=== PATIENT | male | born 1965 | race Caucasian/White ===

== ENCOUNTER 2025-04-01 17:00 | Inpatient (IN) | payer MEDICARE, MEDICAID ==
[~2025-04-01] VITALS: Ht 165.1 cm; Wt 62.0 kg
[2025-04-01] VITALS (7 sets, daily range): BP systolic 107–120; BP diastolic 69–84; PULSE 70–80; RESP 15–20; O2SAT 96–100
[~2025-04-01 17:00] MED LIST: CLON0.2T
--- NOTE | 2025-04-01 17:13 | ED.PDOC ---
HPI Comments This is a 60 year old male SONIA presenting to the ED with chief complaint of chest pain. EMS reports patient is coming from dialysis center where he did not get dialysis due to his symptoms. EMS relays that the patient is currently experiencing left sided 6/10 chest pain with associated SOB and fatigue. EMS states patient was hypotensive in the 70s systolically, but after 500mL of IV NS, it improved to 100 systolically. EMS notes patient had an O2 saturation in the 80s on RA, but when placed on 15L he was in the mid 90s. Patient denies any cough, fever, chills, headache, dizziness, N/V, or syncope. EMS reports patient had a cardiac arrest last week and was resuscitated at [place]. Time Seen by MD: 17:09 Reviewed Notes: Nurses Notes, Medications, Allergies Allergies: Coded Allergies: Penicillins (Verified Allergy, Unknown, 04/01/25) Home Meds Active Scripts Azithromycin (Azithromycin) 500 Mg Tab, 1 TAB PO DAILY, #3 TAB Prov:ISELA JAIMES MD 04/04/25 Cefdinir (Cefdinir) 300 Mg Cap, 1 CAP PO BID for 5 Days, #10 CAP Prov:ISELA JAIMES MD 04/04/25 Reported Medications Clonidine Hydrochloride (Clonidine Hcl) 0.2 Mg Tab 09/18/10 Information Source: Patient, Emergency Med Personnel Mode of Arrival: EMS Severity: Moderate Timing: Hours Duration: Since onset Prehospital treatment: None Location: Chest (L) Quality: Sharp Onset: At Rest PE Risk Factors: None History of: Similar pain in past Associated Signs and Symptoms: SOB Past Medical History PAST MEDICAL HISTORY: COPD, ESRD Past Medical History (Other): Cardiac Arrest x1 week ago Surgical History: Denies all surgeries Family History Family History: Reviewed,noncontributory to illness Social History Smoker: Non-Smoker Alcohol: Denies ETOH Use Drugs: Denies Drug Use Lives In: Home Constitutional: reports: fatigue; denies: chills, diaphoresis, fever, malaise, sweats, weakness, others EENTM: denies: blurred vision, double vision, ear bleeding, ear discharge, ear drainage, ear pain, ear ringing, eye pain, eye redness, hearing loss, mouth pain, mouth swelling, nasal discharge, nose bleeding, nose congestion, nose p ain, photophobia, tearing, throat pain, throat swelling, voice changes, others Respiratory: reports: shortness of breath; denies: cough, hemoptysis, orthopnea, SOB at rest, SOB with excertion, stridor, wheezing, others Cardiovascular: reports: chest pain; denies: dizzy spells, diaphoresis, Dyspnea on exertion, edema, irregular heart beat, left arm pain, lightheadedness, palpitations, PND, syncope, others Gastrointestinal: denies: abdomen distended, abdominal pain, blood streaked bowels, constipated, diarrhea, dysphagia, difficulty swallowing, hematemesis, melena, nausea, poor appetite, poor fluid intake, rectal bleeding, rectal pain, vomiting, others Genitourinary: denies: burning, dysuria, flank pain, frequency, hematuria, incontinence, penile discharge, penile sore, pain, testicle pain, testicle swelling, urgency, others Neurological: denies: dizziness, fainting, headache, left sided numbness, left sided weakness, numbness, paresthesia, pre-existing deficit, right sided numbness, right sided weakness, seizure, speech problems, tingling, tremors, weakness, others Musculoskeletal: denies: back pain, gout, joint pain, joint swelling, muscle pain, muscle stiffness, neck pain, others Integumetry: denies: bruises, change in color, change in hair/nails, dryness, laceration, lesions, lumps, rash, wounds, others Allergic/Immunocompromised: denies: Difficulty Healing, Frequent Infections, Hives, Itching, others Hematologic/Lymphatic: denies: anemia, blood clots, easy bleeding, easy bruising, swollen glands, others Endocrine: denies: excessive hunger, excessive sweating, excessive thirst, excessive urination, flushing, intolerance to cold, intolerance to heat, unexplained weight gain, unexplained weight loss, others Psychiatric: denies: anxiety, bipolar disorder, depression, hopeless, panic disorder, schizophrenia, sleepless, suicidal, others All Other Systems: Reviewed and Negative Physical Exam General Appearance: No Apparent Distress, Normal HEENT: Normal ENT Inspection, Pharynx Normal, TMs Normal Neck: Full Range of Motion, Non-Tender, Normal, Normal Inspection Respiratory: Chest Non-Tender, Lungs Clear, No Accessory Muscle Use, No Respiratory Distress, Normal Breath Sounds Cardiovascular: No Edema, No JVD, No Murmur, No Gallop, Normal Peripheral Pulses, Regular Rate/Rhythm Breast Exam: Deferred Gastrointestinal: No Organomegaly, Non Tender, No Pulsatile Mass, Normal Bowel Sounds, Soft Genitalia: Deferred Pelvic: Deferred Rectal: Deferred Extremities: No calf tenderness, Normal capillary refill, Normal inspection, Normal range of motion, Non-tender, No pedal edema Musculoskeletal : Apperance: Normal Neurologic: Alert, low raw sugar cutter II-XII nml as Tested, No Motor Deficits, Normal Affect, Normal Mood, No Sensory Deficits Cerebellar Function: Normal Reflexes: Normal Skin: Dry, Normal Color, Warm Lymphatic: No Adenopathy Was a procedure done? Was a procedure done?: No CP Differential Dx Differential Diagnosis: Hypoxia, MAT, PAC's, PVC's, Renal Failure Differential Diagnosis: CHF, HTN Essential, HTN Accelerated Differential Diagnosis: Chest Wall Pain, Myocardial Infarction, Pericarditis X-Ray, Labs, Meds, VS Vital Signs Date Time Temp Pulse Resp B/P (MAP) Pulse Ox O2 Delivery O2 Flow Rate FiO2 04/01/25 20:21 75 15 100 Bi-Pap+ 0 80 80 04/01/25 20:04 75 04/01/25 20:00 75 04/01/25 19:30 97.9 75 15 117/77 (90) 100 97.9 04/01/25 19:15 73 115/70 100 Facial BiPAP Mask 100 04/01/25 19:05 121/76 04/01/25 19:00 26 100 Bi-Pap+ 100 100 04/01/25 18:20 70 20 107/69 100 100 04/01/25 18:00 74 04/01/25 17:35 70 107/69 100 Facial BiPAP Mask 100 04/01/25 17:23 72 19 96 Non-Rebreather 15 N/A 04/01/25 17:23 97.5 72 19 107/69 (82) 96 97.5 04/01/25 17:03 96.1 74 24 94/50 96 96.1 04/01/25 17:01 72 Lab Test 04/01/25 18:31 04/01/25 17:41 Range/Units Troponin I High Sensitivity 15 15 </=54 ng/L White Blood Count 9.7 4.4-10.8 10^3/uL Red Blood Count 3.29 L 4.5-5.90 10^6/uL Hemoglobin 9.5 L 13.5-17.5 g/dL Hematocrit 28.9 L 41.0-53.0 % Mean Corpuscular Volume 87.9 80.0-100.0 fL Mean Corpuscular Hemoglobin 28.9 28.0-32.0 pg Mean Corpuscular Hemoglobin Concent 32.9 32.0-36.0 g/dL Red Cell Distribution Width 17.3 H 11.8-14.3 % Platelet Count 613 H 140-450 10^3/uL Mean Platelet Volume 6.9 6.9-10.8 fL Neutrophils (%) (Auto) 82.2 H 37.0-80.0 % Lymphocytes (%) (Auto) 4.3 L 10.0-50.0 % Monocytes (%) (Auto) 10.9 0.0-12.0 % Eosinophils (%) (Auto) 1.3 0.0-7.0 % Basophils (%) (Auto) 1.3 0.0-2.0 % Neutrophils # (Auto) 8.0 1.6-8.6 10 ^3/uL Lymphocytes # (Auto) 0.4 0.4-5.4 10 ^3/uL Monocytes # (Auto) 1.1 0-1.3 10 ^3/uL Eosinophils # (Auto) 0.1 0-0.8 10 ^3/uL Basophils # (Auto) 0.1 0-0.2 10 ^3/uL Nucleated Red Blood Cells 0.1 % Sodium Level 141 136-145 mmol/L Potassium Level 5.3 H 3.5-5.1 mmol/L Chloride Level 104 98-107 mmol/L Carbon Dioxide Level 22 20-31 mmol/L Anion Gap 15 5-15 Blood Urea Nitrogen 48 H 9-23 mg/dL Creatinine 6.40 H 0.700-1.30 mg/dL Glomerular Filtration Rate Calc 9 >90 mL/min BUN/Creatinine Ratio 7.5 L 10.0-20.0 Serum Glucose 137 H 74-106 mg/dL Calcium Level 8.1 L 8.7-10.4 mg/dL Phosphorus Level 5.2 H 2.4-5.1 mg/dL Magnesium Level 2.1 1.6-2.6 mg/dL B-Type Natriuretic Peptide 1220.90 0-100 pg/mL Time of 1ST Reevaluation: 18:08 Reevaluation 1ST: Unchanged Patient Education/Counseling: Diagnosis, Treatment Family Education/Counseling: No Family Present SEPSIS Sepsis Screen Physician Orders Chest Portable (04/01/25 17:10) Electrocardigram (04/01/25 17:10) Electrocardigram (04/01/25 18:10) Electrocardigram (04/01/25 20:10) Vital Signs Date Time Temp Pulse Resp B/P (MAP) Pulse Ox O2 Delivery O2 Flow Rate FiO2 04/01/25 20:21 75 15 100 Bi-Pap+ 0 80 80 04/01/25 20:04 75 04/01/25 20:00 75 04/01/25 19:30 97.9 75 15 117/77 (90) 100 97.9 04/01/25 19:15 73 115/70 100 Facial BiPAP Mask 100 04/01/25 19:05 121/76 04/01/25 19:00 26 100 Bi-Pap+ 100 100 04/01/25 18:20 70 20 107/69 100 100 04/01/25 18:00 74 04/01/25 17:35 70 107/69 100 Facial BiPAP Mask 100 04/01/25 17:23 72 19 96 Non-Rebreather 15 N/A 04/01/25 17:23 97.5 72 19 107/69 (82) 96 97.5 04/01/25 17:03 96.1 74 24 94/50 96 96.1 04/01/25 17:01 72 Laboratory Tests Test 04/01/25 17:41 White Blood Count 9.7 10^3/uL (4.4-10.8) Departure 1 Departure Time of Disposition: 04:48 (Patient presented with chest pain that was concerning for possible STEMI, ACS, PE, Pneumonia, Muscle Strain, COPD, Dissection. Data: 1. I ordered and reviewed the result of at least 3 labs inc luding a CBC, BMP, and Troponin. 2. I independently interpreted the following tests: EKG which shows sinus arrhythmia and Chest X-ray which shows benign chest.Risk:This patient has a high risk of morbidity due to further diagnostic testing or treatment and may suffer from an acute cardiac or respiratory disorder. Workup reveals concern for ACS and patient should be admitted for fur ther workup and possible expert consultation. ) Impression: Primary Impression: Acute chest pain Additional Impression: Acute and chronic respiratory failure Disposition: ADMITTED INPATIENT Admit to: Tele Condition: Guarded e-Prescriptions Azithromycin (Azithromycin) 500 Mg Tab 1 TAB PO DAILY, #3 TAB Prov: ISELA JAIMES MD 04/04/25 Cefdinir (Cefdinir) 300 Mg Cap 1 CAP PO BID for 5 Days, #10 CAP Prov: ISELA JAIMES MD 04/04/25 Critical Care Note Critical Care Time?: Yes Critical care comment: Acute chest pain Authorized and Performed by: Marie Mcrae MD Total critical care time: Approximately 38 minutes Due to a high probability of clinically significant, life threatening deterioration, the patient required my highest level of preparedness to intervene emergently and I personally spent this critical care time directly and personally managing the patient. This critical care time included obtaining a history; examining the patient; pulse oximetry; ordering and review of studies; arranging urgent treatment with development of a management plan; evaluation of patient's response to treatment; frequent reassessment; and, discussions with other providers. This critical care time was performed to assess and manage the high probability of imminent, life-threatening deterioration that could result in multi-organ failure. It was exclusive of separately billable procedures and treating other patients and teaching time. Please see my other sections and the rest of the note for further information on patient assessment and treatment. Stability Stability form required: No Heart Score Heart Score: Heart Score Response (Comments) Value History Highly Suspicious 2 EKG Repolarization Disturb 1 Age 45-64 1 Risk Factors >3 or Hx ASHD 2 Troponin 1-2 x's Normal limit 1 Total 7 I personally scribed for MARIE MCRAE MD ([email or web address]) on 04/01/25 at 17:13. Electronically submitted by Leon Kemp ([email or web address]). MARIE MCRAE MD Apr 01, 2025 17:13
--- NOTE | 2025-04-01 17:59 | ECG ---
[facility] Test Date: 2025-04-01 Test Time: 17:58:20 Pat Name: ROBSON ESQUIVEL Department: [facility] ED Patient ID: [id number] Room: 0217T Gender: M Pizzamaker: AM : 1965 Requested By: MARIE POWELL Order Number: [id number] Reading MD: Valdo Heard Measurements Intervals [place] Rate: 74 P: 49 PA: 147 QRS: 42 QRSD: 91 T: 11 QT: 446 QTc: 495 Interpretive Statements Sinus rhythm Anteroseptal infarct, age indeterminate Baseline wander in lead(s) I,II,aVR,aVF Electronically Signed On 04-04-2025 20:34:42 PDT by Valdo Heard Please click the below link to view image of tracing.
[2025-04-01 18:05] LABS: Hematocrit 28.9 % (41.0-53.0); Hemoglobin 9.5 g/dL (13.5-17.5); Mean Corpuscular Hemoglobin 28.9 pg (28.0-32.0); Mean Corpuscular Volume 87.9 fL (80.0-100.0); Nucleated Red Blood Cells % 0.1 %
--- NOTE | 2025-04-01 18:06 | DVH ---
CHEST RADIOGRAPH Indication: sob Technique: XY CHEST PORTABLE COMPARISON: None FINDINGS: Left IJ Perma catheter tip projects over the cavoatrial junction The cardiac silhouette is enlarged. The lungs demonstrate bilateral patchy airspace opacities. The pu lmonary vasculature is prominent. Small to moderate left pleural effusion. There is no pneumothorax. IMPRESSION: Cardiomegaly with pulmonary vascular congestion and bilateral patchy airspace opacities. Small to moderate left pleural effusion.
[2025-04-01 18:10] LABS: Chloride 104 mmol/L (98-107); Sodium 141 mmol/L (136-145)
[2025-04-01 18:11] LABS: Anion Gap 15 (5-15); Carbon Dioxide 22 mmol/L (20-31)
[2025-04-01 18:16] LABS: BUN/Creatinine Ratio 7.5 (10.0-20.0)
[2025-04-01 18:17] LABS: Magnesium 2.1 mg/dL (1.6-2.6)
[2025-04-01 18:27] LABS: Blood Urea Nitrogen 48 mg/dL (9-23); Calcium 8.1 mg/dL (8.7-10.4); Glucose 137 mg/dL (74-106); Potassium 5.3 mmol/L (3.5-5.1)
[2025-04-01] MEDS: IPRATROPIUM BROM 0.5 MG/2.5ML INH SOL NEB ONE (19:00)
[2025-04-01] MEDS: ALBUTEROL SULF 2.5 MG/0.5ML(0.5%) NEB SOLN NEB ONE (19:00)
[2025-04-01] MEDS: FUROSEMIDE 40 MG/4 ML VIAL IV ONE (19:05)
--- NOTE | 2025-04-01 20:08 | ECG ---
[facility] Test Date: 2025-04-01 Test Time: 20:04:03 Pat Name: ROBSON ESQUIVEL Department: [facility] ED Patient ID: [id number] Room: 0217T Gender: M Roof Bolter: YOLANDA : 1965 Requested By: MARIE POWELL Order Number: [id number] Reading MD: Valdo Heard Measurements Intervals [place] Rate: 75 P: 266 DE: 107 QRS: -10 QRSD: 84 T: 29 QT: 422 QTc: 472 Interpretive Statements Sinus or ectopic atrial rhythm Short DE interval Anterior infarct, old Baseline wander in lead(s) III Electronically Signed On 04-04-2025 20:35:07 PDT by Valdo Heard Please click the below link to view image of tracing.
[2025-04-01] MEDS ORDERED: MORPHINE SULFATE 4 MG/ML SYR/VIAL IV PRN (21:00)
[2025-04-01] MEDS ORDERED: NITROGLYCERIN 0.4 MG SL TAB SL PRN (21:00)
[2025-04-01] MEDS ORDERED: ONDANSETRON HCL 4 MG/2 ML VIAL IV PRN (21:00)
--- NOTE | 2025-04-01 21:00 | DVHHPRES ---
History of Present Illness Resident Creating Document: MATTY HUERTA RESIDENT History of Present Illness Osmin Rodriguez is a 60-year-old male patient who presents to the ED with chief complaint of dull achy retrosternal chest pain intensity 9/10, worsened with movements and reproduces with palpation, triggered after receiving CPR approximately one month ago, but worsened before receiving hemodialysis session on the day of his admission associated with dyspnea in functional class IV and hypotension (80/40 mmHg), prompting his visit to the ED. patient reports recent admission in [facility] due to cardiac arrest with posterior ROSC secondary to GI bleed (PUD), requiring emergent endoscopy that catheterized bleeding ulcer, and required 9 units of PRBCs. Denies any other associated symptoms, including syncope, palpitation, fever and chills. Past medical history: Hypertension, gastritis, recent hospitalization with cardiac arrest requiring CPR due to GI bleed (PUD) status post endoscopies treatment and 9 PRBCs, end-stage renal disease on dialysis since a proximally one year and a half (follows [facility] with Dr. Ponce), questionable obstructive sleep apnea, CHF on home oxygen (2 L/min during nighttime). Surgical history: EGD with active bleeding treatment, ACL replacement, splenectomy Family history: Noncontributory Social history: Lives in [place] with (next of kin). 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 Denies current tobacco, alcohol and other drug abuse Allergies: Penicillin (rash) Home medication: Hydralazine, calcium, nifedipine Patient seen examined at bedside. Currently on BiPAP machine, saturating above 88% (98%). Admit the patient to [facility] to continue management. Past Medical History Per HPI Past Surgical History Per HPI Family History Per HPI Past Social History Per HPI Review of Systems Review of Systems For HPI Allergies: Coded Allergies: Penicillins (Verified Allergy, Unknown, 04/01/25) Medications Current Medications Medications Dose Ordered Sig/Nikos Route Start Time Stop Time Status Last Admin Dose Admin Acetaminophen 325 mg Q4HP PRN PO 04/01/25 21:00 Ondansetron HCl 4 mg Q4HP PRN IV 04/01/25 21:00 UNV Morphine Sulfate 2 mg Q4HPRN PRN IV 04/01/25 21:00 UNV Morphine Sulfate 2 mg Q30M PRN IV 04/01/25 21:00 UNV Nitroglycerin 0.4 mg Q5MINP PRN SL 04/01/25 21:00 Exam Vital Signs Vital Signs Date Time Temp Pulse Resp B/P (MAP) Pulse Ox O2 Delivery O2 Flow Rate FiO2 04/01/25 20:21 75 15 100 Bi-Pap+ 0 80 80 04/01/25 20:21 97.9 117/77 (90) 97.9 Exam Patient lying in bed, in no acute distress General: Lucid, afebrile, mucosae are moist Cardiovascular: Normal S1 and S2. No murmurs, gallops or rubs Respiratory: Regular ventilation mechanics, on BIPAP. Bilateral crackles up to mid lungs bazan. Abdomen: Soft, nontender, no organomegaly, normal bowel sounds MSK/skin: Mobilizes 4 limbs. Skin is dry and warm. Presents tunneled catheter in left subclavian region, no signs of erythema. Neurological: Oriented in 3 spheres. No motor no sensitive deficits. Pupils are isocoric and reactive Labs/Xrays Labs Test 04/01/25 18:31 04/01/25 17:41 Range/Units Troponin I High Sensitivity 15 </=54 ng/L White Blood Count 9.7 4.4-10.8 10^3/uL Red Blood Count 3.29 L 4.5-5.90 10^6/uL Hemoglobin 9.5 L 13.5-17.5 g/dL Hematocrit 28.9 L 41.0-53.0 % Mean Corpuscular Volume 87.9 80.0-100.0 fL Mean Corpuscular Hemoglobin 28.9 28.0-32.0 pg Mean Corpuscular Hemoglobin Concent 32.9 32.0-36.0 g/dL Red Cell Distribution Width 17.3 H 11.8-14.3 % Platelet Count 613 H 140-450 10^3/uL Mean Platelet Volume 6.9 6.9-10.8 fL Neutrophils (%) (Auto) 82.2 H 37.0-80.0 % Lymphocytes (%) (Auto) 4.3 L 10.0-50.0 % Monocytes (%) (Auto) 10.9 0.0-12.0 % Eosinophils (%) (Auto) 1.3 0.0-7.0 % Basophils (%) (Auto) 1.3 0.0-2.0 % Neutrophils # (Auto) 8.0 1.6-8.6 10 ^3/uL Lymphocytes # (Auto) 0.4 0.4-5.4 10 ^3/uL Monocytes # (Auto) 1.1 0-1.3 10 ^3/uL Eosinophils # (Auto) 0.1 0-0.8 10 ^3/uL Basophils # (Auto) 0.1 0-0.2 10 ^3/uL Nucleated Red Blood Cells 0.1 % Sodium Level 141 136-145 mmol/L Potassium Level 5.3 H 3.5-5.1 mmol/L Chloride Level 104 98-107 mmol/L Carbon Dioxide Level 22 20-31 mmol/L Anion Gap 15 5-15 Blood Urea Nitrogen 48 H 9-23 mg/dL Creatinine 6.40 H 0.700-1.30 mg/dL Glomerular Filtration Rate Calc 9 >90 mL/min BUN/Creatinine Ratio 7.5 L 10.0-20.0 Serum Glucose 137 H 74-106 mg/dL Calcium Level 8.1 L 8.7-10.4 mg/dL Phosphorus Level 5.2 H 2.4-5.1 mg/dL Magnesium Level 2.1 1.6-2.6 mg/dL B-Type Natriuretic Peptide 1220.90 0-100 pg/mL SEPSIS Sepsis Screen Date sepsis recognized/suspect: Apr 01, 2025 Time Sepsis recognized/suspect: 1929 Recent Procedure: No On Antibiotic Therapy: No Respiratory Rate >20: No Heart Rate >90: No Temp<36 C (96.8 F) or >38.3 C: No SBP <90 or MAP <65 mmHG: No New Acute Mental Status Change: No Is the patient on CPAP, BIPAP,: Yes (on 80% for SOB) Physician Orders Chest Portable (04/01/25 17:10) Troponin-I Hs (04/01/25 20:10) Electrocardigram (04/01/25 20:10) BIPAP (04/01/25 17:26) Ceftriaxone 1gm/50ml (Rocephin) (04/01/25 19:00) Admit (04/01/25 20:53) Code Status (04/01/25 20:53) Acetaminophen Tablet (Tylenol Tablet) (04/01/25 21:00) Ondansetron Hcl (Zofran) (04/01/25 21:00) Complete Blood Count (04/02/25 04:00) Comprehensive Metabolic Panel (04/02/25 04:00) Npo (Nothing By Mouth) Diet (04/02/25 Breakfast) Echo 2d Mode Cardiac Dop (04/01/25 20:53) Morphine Sulfate Injection (04/01/25 21:00) Oxygen By Nasal Cannula (04/01/25 20:53) Stat Ekg For Chest Pain (04/01/25 20:53) Notify Of Changes From Base (04/01/25 20:53) Account Executive Software Sales For 24 Hours (04/01/25 20:53) Emergency Dysrhythmia Protocol (04/01/25:53) Rhythm Strips Once Every Shift (04/01/25 20:53) Morphine Sulfate Injection (04/01/25 21:00) Nitroglycerin Sublingual (Ntrostat Subli (04/01/25 21:00) Vitamin D, 25-Hydroxy (04/01/25 20:53) Vitamin B12 (04/01/25 20:53) Urinalysis (04/01/25 20:53) PTPTT (04/01/25 20:53) Phosphorus (04/01/25 20:53) Magnesium (04/01/25 20:53) Lipid Panel (04/01/25 20:53) Lactic Acid W/ Reflex Order (04/01/25 20:53) Lipase (04/01/25 20:53) Hemoglobin A1c (04/01/25 20:53) Drug Screen (04/01/25 20:53) Ammonia (04/01/25 20:53) Hepatic Panel (04/01/25 20:53) Electrocardigram (04/01/25 20:53) Vital Signs Date Time Temp Pulse Resp B/P (MAP) Pulse Ox O2 Delivery O2 Flow Rate FiO2 04/01/25 20:21 75 15 100 Bi-Pap+ 0 80 80 04/01/25 20:21 97.9 75 15 117/77 (90) 100 97.9 04/01/25 20:04 75 04/01/25 19:15 73 115/70 100 Facial BiPAP Mask 100 04/01/25 19:05 121/76 04/01/25 19:00 26 100 Bi-Pap+ 100 100 04/01/25 18:20 70 20 107/69 100 100 04/01/25 18:00 74 04/01/25 17:35 70 107/69 100 Facial BiPAP Mask 100 04/01/25 17:23 72 19 96 Non-Rebreather 15 N/A 04/01/25 17:23 97.5 72 19 107/69 (82) 96 97.5 04/01/25 17:03 96.1 74 24 94/50 96 96.1 04/01/25 17:01 72 Laboratory Tests Test 04/01/25 17:41 White Blood Count 9.7 10^3/uL (4.4-10.8) Medications Medications Dose Ordered Sig/Nikos Route Start Time Stop Time Status Last Admin Dose Admin Albuterol 2.5 mg ONCE ONCE NEB 04/01/25 19:00 04/01/25 19:01 DC 04/01/25 19:00 2.5 MG Furosemide 40 mg ONCE ONCE IV 04/01/25 19:00 04/01/25 19:01 DC 04/01/25 19:05 40 MG Ipratropium [place] 1 mg ONCE ONCE NEB 04/01/25 19:00 04/01/25 19:01 DC 04/01/25 19:00 1 MG Assessment/Plan Assessment/Plan Acute respiratory failure Probable pneumonia Gram-positive/Gram-negative Acute on chronic congestive heart failure (pending LVEF) Cardiorenal syndrome type three Patient is currently on furosemide, requiring hemodialysis session. Consulted nephrology BNP elevated Normocytic anemia History of severe GI bleed complicated with cardiac arrest - status post EGD with catheterization of PUD Thrombocytopenia Evaluate requirement of erythropoietin Patient is currently on heparin, we will monitor hemoglobin and hematocrit End-stage renal disease currently on hemodialysis session Hyperphosphatemia Hyperkalemia Consulted nephrology Optimize electrolytes History of Polysubstance abuse Counseled strongly on continuing cessation of substance abuse for over 16 minutes Patient last consumed methamphetamine a year and a half ago. Ordered UDS, patient is almost anuric. Goals of care discussed with patient for over 18 minutes: Full code status Discussed plan with Dr. Trujillo, patient and nurses: Patient admitted to [facility] with requirement of BiPAP. Currently under empiric IV antibiotic, IV diuretics, oxygen therapy and bronchodilators. Consulted Nephrology for eventual hemodialysis session. Patient has poor prognosis Plan discussed with: Patient, Other (Nurses) My Orders Orders - MATTY HUERTA RESIDENT Procedure Category Date Status Time Admit ADMIT 04/01/25 Transmitted 20:53 Code Status CODE 04/01/25 Transmitted 20:53 Acetaminophen Tablet PHA 04/01/25 In Process (Tylenol Tablet) 21:00 Ondansetron Hcl PHA 04/01/25 Logged (Zofran) 21:00 Complete Blood Count LAB 04/02/25 Verified 04:00 Comprehensive LAB 04/02/25 Verified Metabolic Panel 04:00 Npo (Nothing By DIET 04/02/25 Transmitted Mouth) Diet Breakfast Echo 2d Mode Cardiac US 04/01/25 Logged DOP 20:53 Morphine Sulfate PHA 04/01/25 Logged Injection 21:00 Oxygen By Nasal RT 04/01/25 Transmitted Cannula 20:53 Stat Ekg For Chest [facility] 04/01/25 In Process Pain 20:53 Notify Of Changes [facility] 04/01/25 In Process From Base 20:53 Account Executive Software Sales For [facility] 04/01/25 In Process 24 Hours 20:53 Emergency Dysrhythmia [facility] 04/01/25 In Process Protocol 20:53 Rhythm Strips Once [facility] 04/01/25 In Process Every Shift 20:53 Morphine Sulfate PHA 04/01/25 Logged Injection 21:00 Nitroglycerin [facility] 04/01/25 In Process Sublingual (Ntrostat 21:00 Vitamin D, 25-Hydroxy LAB 04/01/25 Logged 20:53 Vitamin B12 LAB 04/01/25 Logged 20:53 Urinalysis LAB 04/01/25 Logged 20:53 PTPTT LAB 04/01/25 Logged 20:53 Phosphorus LAB 04/01/25 Logged 20:53 Magnesium LAB 04/01/25 Logged 20:53 Lipid Panel LAB 04/01/25 Logged 20:53 Lactic Acid W/ Reflex LAB 04/01/25 Logged Order 20:53 Lipase LAB 04/01/25 Logged 20:53 Hemoglobin A1c LAB 04/01/25 Logged 20:53 Drug Screen LAB 04/01/25 Logged 20:53 Ammonia LAB 04/01/25 Logged 20:53 Hepatic Panel LAB 04/01/25 Logged 20:53 Electrocardigram EKG 04/01/25 Logged 20:53 Date of Service: Apr 01, 2025 Billing Provider: FARZAD TRUJILLO MD Common Visit Codes: [id number] INP/OBS CARE (HIGH) Secondary Visit Codes: [id number] CARE PLAN 30 MINUTES MATTY HUERTA RESIDENT Apr 01, 2025 21:00
[2025-04-01 21:24] LABS: Base Excess -1.2 mmol/L (-2.0-3.0)
[2025-04-01 22:18] LABS: Alanine Aminotransferase 17.0 U/L (7-40); Albumin 4.0 g/dL (3.2-4.8); Alkaline Phosphatase 88.0 U/L (46-116); Bilirubin, Direct 0.2 mg/dL (<0.3); Bilirubin, Total 0.4 mg/dL (0.2-1.0); Cholesterol 139.0 mg/dL (< 200); Magnesium 2.4 mg/dL (1.6-2.6); Total Protein 7.2 g/dL (5.7-8.2); Triglycerides 56.0 mg/dL (< 150)
[2025-04-01 22:20] LABS: HDL Cholesterol 66.0 mg/dL (40-59)
[2025-04-01 22:23] LABS: INR 1.14 (0.9-1.15); Partial Thromboplastin Time 30.1 SEC (24.5-34.5); Prothrombin Time 11.9 sec (9.3-11.8)
[2025-04-01 22:31] LABS: Lipase 37.0 U/L (12-53)
[2025-04-01] MEDS: MORPHINE SULFATE 4 MG/ML SYR/VIAL IV PRN (22:38)
[2025-04-02] VITALS (8 sets, daily range): BP systolic 120–189; BP diastolic 84–126; PULSE 68–93; RESP 14–20; TEMP 97–97.8; O2SAT 95–98
[2025-04-02] MEDS: AZITHROMYCIN 500MG/ 250ML 250 ML IV ONE (01:54)
[2025-04-02 04:10] LABS: COVID19 ANTIGEN SOFIA FIA NEGATIVE (NEGATIVE)
[2025-04-02 07:54] LABS: Alanine Aminotransferase 12 U/L (7-40); Alkaline Phosphatase 85 U/L (46-116); Anion Gap 17 (5-15); BUN/Creatinine Ratio 7.5 (10.0-20.0); Carbon Dioxide 21 mmol/L (20-31); Chloride 102 mmol/L (98-107); Glucose 89 mg/dL (74-106); Hemoglobin 8.7 g/dL (13.5-17.5); Nucleated Red Blood Cells % 0.1 %; Sodium 140 mmol/L (136-145); Total Protein 7.1 g/dL (5.7-8.2)
[2025-04-02 07:55] LABS: Albumin 4.0 g/dL (3.2-4.8); Bilirubin, Total 0.4 mg/dL (0.2-1.0)
[2025-04-02 07:57] LABS: Hematocrit 26.3 % (41.0-53.0); Mean Corpuscular Hemoglobin 29.0 pg (28.0-32.0); Mean Corpuscular Volume 87.6 fL (80.0-100.0)
[2025-04-02 08:04] LABS: Blood Urea Nitrogen 54 mg/dL (9-23); Calcium 8.2 mg/dL (8.7-10.4); Potassium 5.5 mmol/L (3.5-5.1)
[2025-04-02] MEDS: SEVELAMER 800 MG TAB PO SCH (08:46)
[2025-04-02] MEDS ORDERED: SODIUM CHL 0.9% 1000 ML BAG XX ONE (09:00)
--- NOTE | 2025-04-02 09:26 | DVHINCON2 ---
Date of service: Apr 02, [address] White Reason for Consultation End-stage renal disease to manage hemodialysis History of Present Illness Patient is a 60-year-old male with past medical history of end-stage renal disease on hemodialysis, Congestive heart failure, chronic respiratory failure, GI bleeding, peptic ulcer disease and cardiac arrest who was admitted per chest pain. On admission Nephrology is consulted to manage his hemodialysis Past Medical History End-stage renal disease, Congestive heart failure, peptic ulcer disease, cardiac arrest Past Surgical History Tunneled IJ hemodialysis catheter Allergies: Coded Allergies: Penicillins (Verified Allergy, Unknown, 04/01/25) Home Meds Reported Medications Clonidine Hydrochloride (Clonidine Hcl) 0.2 Mg Tab 09/18/10 Current Medications Current Medications Medications (Trade) Dose Ordered Sig/Nikos Route PRN Reason Start Time Stop Time Status Last Admin Acetaminophen (Tylenol Tablet) 325 mg Q4HP PRN PO MILD PAIN (1-3 PAIN SCALE) 04/01/25 21:00 Ondansetron HCl (Zofran) 4 mg Q4HP PRN IV NAUSEA / VOMITING 04/01/25 21:00 Morphine Sulfate 2 mg Q4HPRN PRN IV SEVERE PAIN (7-10 PAIN SCALE) 04/01/25 21:00 Morphine Sulfate 2 mg Q30M PRN IV FOR CHEST PAIN 04/01/25 21:15 04/01/25 22:38 Nitroglycerin (Ntrostat Sublingual) 0.4 mg Q5MINP PRN SL FOR CHEST PAIN 04/01/25 21:00 Ceftriaxone Sodium 50 ml @ 100 mls/hr DAILY@09 IV 04/02/25 09:00 04/02/25 09:07 Azithromycin 250 ml @ 125 mls/hr DAILY IV 04/03/25 10:00 Sevelamer HCl (Renagel) 800 mg TIDWM PO 04/02/25 08:00 04/02/25 13:06 Heparin Sodium (Porcine) 5,000 units Q12HR SC 04/02/25 10:00 Furosemide (Lasix Injection) 40 mg BIDD IV 04/02/25 18:00 Review of Systems All 12 item review of systems reviewed with the patient nonsignificant except what is mentioned in the history of present illness H&P Exam Vital Signs/I&O Vital Sign Date Time Temp Pulse Resp B/P (MAP) Pulse Ox O2 Delivery O2 Flow Rate FiO2 04/02/25 10:30 69 15 169/99 (122) 95 04/02/25 07:30 Nasal Cannula* 3 32 04/02/25 07:30 98.1 98.1 Intake and Output 04/01/25 04/02/25 19:00 07:00 Intake Total 300 ml Balance 300 ml Intake IV Total 300 ml Physical Exam Patient examined on hemodialysis, blood pressure stable Patient lying comfortably in bed appears in no acute distress Lungs bibasilar crackles Cardiac exam regular rate and rhythm GI soft nontender was normal Extremity trace pitting edema Neuro patient is awake and alert Labs/Diagnostic Data Labs/Diagnostic Data Laboratory Tests Test 04/02/25 07:17 04/02/25 02:00 04/01/25 21:30 04/01/25 21:15 Range/Units White Blood Count 9.5 4.4-10.8 10^3/uL Red Blood Count 3.00 L 4.5-5.90 10^6/uL Hemoglobin 8.7 L 13.5-17.5 g/dL Hematocrit 26.3 L 41.0-53.0 % Mean Corpuscular Volume 87.6 80.0-100.0 fL Mean Corpuscular Hemoglobin 29.0 28.0-32.0 pg Mean Corpuscular Hemoglobin Concent 33.1 32.0-36.0 g/dL Red Cell Distribution Width 16.7 H 11.8-14.3 % Platelet Count 585 H 140-450 10^3/uL Mean Platelet Volume 6.6 L 6.9-10.8 fL Neutrophils (%) (Auto) 79.1 37.0-80.0 % Lymphocytes (%) (Auto) 6.5 L 10.0-50.0 % Monocytes (%) (Auto) 11.7 0.0-12.0 % Eosinophils (%) (Auto) 1.2 0.0-7.0 % Basophils (%) (Auto) 1.5 0.0-2.0 % Neutrophils # (Auto) 7.5 1.6-8.6 10 ^3/uL Lymphocytes # (Auto) 0.6 0.4-5.4 10 ^3/uL Monocytes # (Auto) 1.1 0-1.3 10 ^3/uL Eosinophils # (Auto) 0.1 0-0.8 10 ^3/uL Basophils # (Auto) 0.1 0-0.2 10 ^3/uL Nucleated Red Blood Cells 0.1 % Sodium Level 140 136-145 mmol/L Potassium Level 5.5 H 3.5-5.1 mmol/L Chloride Level 102 98-107 mmol/L Carbon Dioxide Level 21 20-31 mmol/L Anion Gap 17 H 5-15 Blood Urea Nitrogen 54 H 9-23 mg/dL Creatinine 7.18 H 0.700-1.30 mg/dL Glomerular Filtration Rate Calc 8 >90 mL/min BUN/Creatinine Ratio 7.5 L 10.0-20.0 Serum Glucose 89 74-106 mg/dL Calcium Level 8.2 L 8.7-10.4 mg/dL Total Bilirubin 0.4 0.4 0.2-1.0 mg/dL Aspartate Amino Transferase (AST) 17 13 13-40 U/L Alanine Aminotransferase (ALT) 12 17 7-40 U/L Alkaline Phosphatase 85 88 46-116 U/L Total Protein 7.1 7.2 5.7-8.2 g/dL Albumin 4.0 4.0 3.2-4.8 g/dL Parathyroid Hormone (Intact) 174.6 H 18.4-80.1 pg/mL Influenza Type A Antigen Negative Negative Influenza Type B Antigen Negative Negative SARS-CoV-2 Antigen (Rapid) Negative NEGATIVE Prothrombin Time 11.9 H 9.3-11.8 sec Prothrombin Time INR 1.14 0.9-1.15 Activated Partial Thromboplast Time 30.1 24.5-34.5 SEC Hemoglobin A1c 5.0 <5.7 % A1C Lactic Acid Level 1.2 0.4-2.0 mmol/L Phosphorus Level 6.0 H 2.4-5.1 mg/dL Magnesium Level 2.4 1.6-2.6 mg/dL Direct Bilirubin 0.2 <0.3 mg/dL Ammonia < 10 L 11-32 umol/L Troponin I High Sensitivity 16 </=54 ng/L Triglycerides Level 56 < 150 mg/dL Cholesterol Level 139 < 200 mg/dL LDL Cholesterol 62 < 100 mg/dL HDL Cholesterol 66 H 40-59 mg/dL Lipase 37 12-53 U/L Vitamin B12 Level 594 211-911 pg/mL Vitamin D 25-Hydroxy 83.2 30.0-100 ng/mL Blood Gas Specimen Type Arterial Blood Gas Sample Site Right radial Blood Gas Patient Temperature 37.0 Arterial Blood Date Drawn [id number] Arterial Blood pH 7.453 H 7.350-7.450 Arterial Blood Partial Pressure CO2 32.5 L 35.0-48.0 mmHg Arterial Blood Partial Pressure O2 146.1 H 83.0-108.0 mmHg Arterial Blood HCO3 22.2 21.0-28.0 mmol/L Arterial Blood Oxygen Saturation 98.9 H 94.0-98.0 % Arterial Blood Base Excess -1.2 -2.0-3.0 mmol/L Arterial Blood Oxyhemoglobin 98.2 H 94.0-98.0 % Arterial Blood Carboxyhemoglobin 0.0 L 0.5-1.5 % Arterial Blood Methemoglobin 0.7 0.0-1.5 % Ko Test Yes Blood Gas Total Hemoglobin 9.70 L 13.5-17.5 g/dL Blood Gas Set Respiration Rate 18.0 Blood Gas Modality Mask - bipap FiO2 % 80.0 Blood Gas EPAP 5 Blood Gas IPAP 10 Test 04/01/25 18:31 04/01/25 17:41 Range/Units Troponin I High Sensitivity 15 15 </=54 ng/L White Blood Count 9.7 4.4-10.8 10^3/uL Red Blood Count 3.29 L 4.5-5.90 10^6/uL Hemoglobin 9.5 L 13.5-17.5 g/dL Hematocrit 28.9 L 41.0-53.0 % Mean Corpuscular Volume 87.9 80.0-100.0 fL Mean Corpuscular Hemoglobin 28.9 28.0-32.0 pg Mean Corpuscular Hemoglobin Concent 32.9 32.0-36.0 g/dL Red Cell Distribution Width 17.3 H 11.8-14.3 % Platelet Count 613 H 140-450 10^3/uL Mean Platelet Volume 6.9 6.9-10.8 fL Neutrophils (%) (Auto) 82.2 H 37.0-80.0 % Lymphocytes (%) (Auto) 4.3 L 10.0-50.0 % Monocytes (%) (Auto) 10.9 0.0-12.0 % Eosinophils (%) (Auto) 1.3 0.0-7.0 % Basophils (%) (Auto) 1.3 0.0-2.0 % Neutrophils # (Auto) 8.0 1.6-8.6 10 ^3/uL Lymphocytes # (Auto) 0.4 0.4-5.4 10 ^3/uL Monocytes # (Auto) 1.1 0-1.3 10 ^3/uL Eosinophils # (Auto) 0.1 0-0.8 10 ^3/uL Basophils # (Auto) 0.1 0-0.2 10 ^3/uL Nucleated Red Blood Cells 0.1 % Sodium Level 141 136-145 mmol/L Potassium Level 5.3 H 3.5-5.1 mmol/L Chloride Level 104 98-107 mmol/L Carbon Dioxide Level 22 20-31 mmol/L Anion Gap 15 5-15 Blood Urea Nitrogen 48 H 9-23 mg/dL Creatinine 6.40 H 0.700-1.30 mg/dL Glomerular Filtration Rate Calc 9 >90 mL/min BUN/Creatinine Ratio 7.5 L 10.0-20.0 Serum Glucose 137 H 74-106 mg/dL Calcium Level 8.1 L 8.7-10.4 mg/dL Phosphorus Level 5.2 H 2.4-5.1 mg/dL Magnesium Level 2.1 1.6-2.6 mg/dL B-Type Natriuretic Peptide 1220.90 0-100 pg/mL Assessment End-stage renal disease on hemodialysis Acute on chronic respiratory failure Congestive heart failure exacerbation Chest pain Hyperkalemia Anemia of chronic kidney disease Recommendations Continue with UF 3-4 L as tolerated Epogen 37855 subQ 3 times weekly Strict I&Os Renal diet Resume home medication Cardiology consult We will continue to follow Patient seen and examined by myself. I discussed my plan of care with the patient and primary nurse at the bedside I would like to thank Dr. White for the consult, will follow Total care time 35 minutes Plan discussed with: Patient AIDA ANGUIANO MD Apr 02, 2025 09:26
[2025-04-02] MEDS: HEPARIN SODIUM (PORCINE) 5000 UNITS/ML 1ML VIAL SC SCH (09:29)
[2025-04-02] MEDS ORDERED: CARV25TA55 PO (16:30)
[2025-04-02] MEDS ORDERED: HYDR100T10 PO (16:30)
[2025-04-02] MEDS ORDERED: AMLO1TAB23 PO (16:30)
[2025-04-02] MEDS ORDERED: LABE300T5 PO (16:30)
[2025-04-02] MEDS ORDERED: IRBE75TA10 PO (16:30)
[2025-04-02] MEDS ORDERED: CLON0.1T PO (16:30)
[2025-04-02] MEDS: hydrALAZINE HCL 20 MG/ML VL IV PRN (17:56)
[2025-04-02] MEDS: FUROSEMIDE 40 MG/4 ML VIAL IV SCH (17:59)
--- NOTE | 2025-04-02 18:11 | DVHPN2 ---
Subjective I am assuming the care of the patient from today onwards. Patient is complaining of chest pain. Changes from previous H/P or p: No Changes Objective Vitals Vital Signs Date Time Temp Pulse Resp B/P (MAP) Pulse Ox O2 Delivery O2 Flow Rate FiO2 04/02/25 17:56 181/118 04/02/25 16:30 97.0 88 19 97 97.0 04/02/25 15:52 Nasal Cannula* 2 28 Intake/Output Intake and Output 04/02/25 07:00 Intake Total 300 ml Balance 300 ml Intake IV Total 300 ml Exam HEENT pupils are reactive Neck is supple CV is S1-S2 regular rate and rhythm Respiratory diminished breath sounds bilateral bases GI posterior bowel sound Extremity trace edema [employer] no motor deficit Medications Current Medications Medications Dose Ordered Sig/Nikos Route Start Time Stop Time Status Last Admin Dose Admin Acetaminophen 325 mg Q4HP PRN PO 04/01/25 21:00 Ondansetron HCl 4 mg Q4HP PRN IV 04/01/25 21:00 Morphine Sulfate 2 mg Q4HPRN PRN IV 04/01/25 21:00 Morphine Sulfate 2 mg Q30M PRN IV 04/01/25 21:15 04/01/25 22:38 2 MG Nitroglycerin 0.4 mg Q5MINP PRN SL 04/01/25 21:00 Ceftriaxone Sodium 50 ml @ 100 mls/hr DAILY@09 IV 04/02/25 09:00 04/02/25 09:07 100 MLS/HR Azithromycin 250 ml @ 125 mls/hr DAILY IV 04/03/25 10:00 Sevelamer HCl 800 mg TIDWM PO 04/02/25 08:00 04/02/25 17:55 800 MG Heparin Sodium (Porcine) 5,000 units Q12HR SC 04/02/25 10:00 Furosemide 40 mg BIDD IV 04/02/25 18:00 Hydralazine HCl 10 mg Q4HP PRN IV 04/02/25 18:00 04/02/25 17:56 10 MG Laboratory Results Laboratory Tests 04/02/25 07:17 Chemistry Test 04/01/25 21:30 04/02/25 07:17 Albumin 4.0 g/dL (3.2-4.8) 4.0 g/dL (3.2-4.8) Magnesium Level 2.4 mg/dL (1.6-2.6) Phosphorus Level 6.0 mg/dL (2.4-5.1) H Total Protein 7.2 g/dL (5.7-8.2) 7.1 g/dL (5.7-8.2) Calcium Level 8.2 mg/dL (8.7-10.4) L Coagulation Test 04/01/25 21:30 Prothrombin Time 11.9 sec (9.3-11.8) H Prothrombin Time INR 1.14 (0.9-1.15) Activated Partial Thromboplast Time 30.1 SEC (24.5-34.5) Lipid panel Test 04/01/25 21:30 Cholesterol Level 139 mg/dL (< 200) HDL Cholesterol 66 mg/dL (40-59) H Lipase 37 U/L (12-53) Triglycerides Level 56 mg/dL (< 150) LFT Test 04/01/25 21:30 04/02/25 07:17 Alanine Aminotransferase (ALT) 17 U/L (7-40) 12 U/L (7-40) Alkaline Phosphatase 88 U/L (46-116) 85 U/L (46-116) Aspartate Amino Transferase (AST) 13 U/L (13-40) 17 U/L (13-40) Direct Bilirubin 0.2 mg/dL (<0.3) Total Bilirubin 0.4 mg/dL (0.2-1.0) 0.4 mg/dL (0.2-1.0) HgA1c, TSH Test 04/01/25 21:30 Hemoglobin A1c 5.0 % A1C (<5.7) Blood Gas Results Test 04/01/25 21:15 Arterial Blood pH 7.453 (7.350-7.450) FiO2 % 80.0 Microbiology Microbiology Date/Time Source Procedure Growth Status 04/02/25 02:00 Nose MRSA Screen - Final Methicillin Resistant S.aureus Complete Assessment/Plan Assessment/Plan 60-year-old male with a known history of end-stage renal disease on hemodialysis, congestive heart failure, patient with history of cardiac arrest had CPR in the past presented to the hospital with chest pain found to have 1. Acute on chronic hypoxic respiratory failure secondary to acute CHF exacerbation 2. Acute CHF exacerbation with underlying chronic congestive heart failure 3. Probably Gram-negative pneumonia 4. Hypertensive urgency 5. Normocytic anemia 6. Peptic ulcer disease 7. Thrombocytopenia 8. Previous history of illicit drug use -continue IV antibiotics, hemodialysis per renal, hydralazine p.r.n. for systolic blood pressure more than 160. Plan discussed with: Patient My Orders Orders - ISELA JAIMES MD Procedure Category Date Status Time Hydralazine Injection PHA 04/02/25 In Process (Apresoline Inject 18:00 Date of Service: Apr 02, 2025 Billing Provider: ISELA JAIMES MD Common Visit Codes: [id number] INP/OBS CARE(MOD) ISELA JAIMES MD Apr 02, 2025 18:11
[2025-04-02] MEDS: EPOETIN ALFA-EPBX 10,000 UNIT/1ML VIAL SC ONE (22:23)
[2025-04-03] VITALS (9 sets, daily range): BP systolic 152–187; BP diastolic 103–122; PULSE 72–93; RESP 19–22; TEMP 97.6–98.3; O2SAT 93–98
[2025-04-03] MEDS: ACETAMINOPHEN 325 MG TAB PO PRN (05:29)
[2025-04-03] MEDS: AZITHROMYCIN 500MG/ 250ML 250 ML IV SCH (10:10)
[2025-04-03] MEDS: METOPROLOL TARTRATE 25 MG TAB PO SCH (10:10)
--- NOTE | 2025-04-03 10:26 | DVHPN2 ---
Progress Note Date Seen: Apr 03, 2025 Medical Necessity Reason Pt with a Central, PICC or Fol: No Subjective Patient reports: No new complaints Other Systems: Patient seen and examined by myself today in follow-up Objective vital signs Vital Sign Date Time Temp Pulse Resp B/P (MAP) Pulse Ox O2 Delivery O2 Flow Rate FiO2 04/03/25 09:00 98.3 86 19 185/113 (137) 94 98.3 04/03/25 08:10 Nasal Cannula* 2 28 Total Intake and Output 04/02/25 04/02/25 04/03/25 15:00 23:00 07:00 Intake Total 300 ml Output Total 118 ml 0 ml Balance -118 ml 300 ml medications Current Medications Medications Dose Ordered Sig/Nikos Route Start Time Stop Time Status Last Admin Dose Admin Acetaminophen 325 mg Q4HP PRN PO 04/01/25 21:00 04/03/25 05:29 325 MG Ondansetron HCl 4 mg Q4HP PRN IV 04/01/25 21:00 Morphine Sulfate 2 mg Q4HPRN PRN IV 04/01/25 21:00 Morphine Sulfate 2 mg Q30M PRN IV 04/01/25 21:15 04/01/25 22:38 2 MG Nitroglycerin 0.4 mg Q5MINP PRN SL 04/01/25 21:00 Ceftriaxone Sodium 50 ml @ 100 mls/hr DAILY@09 IV 04/02/25 09:00 04/03/25 08:41 100 MLS/HR Azithromycin 250 ml @ 125 mls/hr DAILY IV 04/03/25 10:00 Sevelamer HCl 800 mg TIDWM PO 04/02/25 08:00 04/03/25 07:35 800 MG Heparin Sodium (Porcine) 5,000 units Q12HR SC 04/02/25 10:00 04/02/25 22:27 5,000 UNITS Furosemide 40 mg BIDD IV 04/02/25 18:00 04/03/25 05:30 40 MG Hydralazine HCl 10 mg Q4HP PRN IV 04/02/25 18:00 04/03/25 05:30 10 MG Metoprolol Tartrate 25 mg BID PO 04/03/25 10:00 Amlodipine Besylate 5 mg DAILY PO 04/04/25 10:00 Clonidine HCl 0.2 mg Q6HP PRN PO 04/03/25 01:00 Examination: LUNGS:Normal, CVS:Normal, MSK:Normal laboratory and microbiology Laboratory Tests 04/02/25 07:17 Test 04/02/25 07:17 Range/Units Serum Glucose 89 74-106 mg/dL Microbiology Date/Time Source Procedure Growth Status 04/02/25 02:00 Nose MRSA Screen - Final Methicillin Resistant S.aureus Complete 04/01/25 22:05 Blood Blood Culture - Preliminary NO GROWTH AFTER 24 HOURS OF INCUBATION. Resulted Problem List/Assessment/Plan Problem List/Assessment/Plan End-stage renal disease on hemodialysis Acute on chronic respiratory failure Congestive heart failure exacerbation Chest pain, troponin negative Hypertensive urgency Hyperkalemia Anemia of chronic kidney disease Hyperphosphatemia Recommendations Hemodialysis tomorrow with 4 L ultrafiltration Epogen 38998 subQ 3 times weekly Strict I&Os Renal diet Resume home medication Streamline blood pressure medications Increase amlodipine to 10 mg p.o. q.day Add hydralazine 50 mg p.o. t.i.d. Calcium acetate 1334 mg p.o. t.i.d. with meals Cardiology consult We will continue to follow Plan discussed with: Patient My Orders My Orders Orders - AIDA ANGUIANO MD Procedure Category Date Status Time Hepatitis B Surface LAB 04/02/25 In Process Antigen 10:54 Mrsa Screen YOUSUF 04/02/25 Logged 17:02 Amlodipine Tablet PHA 04/03/25 Logged (Norvasc Tablet) 10:30 Hydralazine Hcl PHA 04/03/25 Logged Tablet (Apresoline 10:30 Hemodialysis Orders ORDERS 04/04/25 Verified 07:00 Dialysis Nursing ABBY 04/04/25 Verified Message 07:00 Heparin Sodium PHA 04/04/25 Verified (Porcine) 07:00 Heparin Sodium PHA 04/04/25 Verified (Porcine) 07:00 Sodium Chloride 0.9% PHA 04/04/25 Verified 07:00 Document Fluid Input ABBY 04/04/25 Verified And Outpu 07:00 Retacrit 10,000unit PHA 04/04/25 Verified Sc Xone 21:00 AIDA ANGUIANO MD Apr 03, 2025 10:26
[2025-04-03] MEDS: CALCIUM ACETATE 667 MG CAP PO SCH (11:03)
[2025-04-03] MEDS: MUPIROCIN 2% OINT 15gm or 22gm FOR MRSA NARES EACHNOSTRI SCH (11:04)
[2025-04-03 13:27] LABS: Urine Protein, UAD 2+ (Negative)
[2025-04-03 13:34] LABS: Benzodiazephine Screen, Urine Pos (NEGATIVE)
[2025-04-03 13:35] LABS: Cannabinoid Screen, Urine Neg (NEGATIVE)
[2025-04-03 13:37] LABS: Amphetamine Screen, Urine Neg (NEGATIVE); Barbiturate Scree,Urine Neg (NEGATIVE); Cocaine Screen, Urine Neg (NEGATIVE); Opiate Scree,Urine Neg (NEGATIVE); Phencyclidine Screen, Urine Neg (NEGATIVE)
--- NOTE | 2025-04-03 17:03 | DVHPN2 ---
Subjective Patient denies any chest pain denies any shortness of breaths. Changes from previous H/P or p: No Changes Objective Vitals Vital Signs Date Time Temp Pulse Resp B/P (MAP) Pulse Ox O2 Delivery O2 Flow Rate FiO2 04/03/25 13:32 149/98 04/03/25 13:00 97.6 72 20 96 97.6 04/03/25 08:10 Nasal Cannula* 2 28 Intake/Output Intake and Output 04/03/25 07:00 Intake Total 300 ml Output Total 118 ml Balance 182 ml Intake Oral 300 ml Output Urine Total 118 ml # Bowel Movements 2 Exam HEENT pupils are reactive Neck is supple CV is S1-S2 regular rate and rhythm Respiratory diminished breath sounds bilateral bases GI posterior bowel sound Extremity trace edema [employer] no motor deficit Medications Current Medications Medications Dose Ordered Sig/Nikos Route Start Time Stop Time Status Last Admin Dose Admin Acetaminophen 325 mg Q4HP PRN PO 04/01/25 21:00 04/03/25 15:04 325 MG Ondansetron HCl 4 mg Q4HP PRN IV 04/01/25 21:00 Morphine Sulfate 2 mg Q4HPRN PRN IV 04/01/25 21:00 Morphine Sulfate 2 mg Q30M PRN IV 04/01/25 21:15 04/01/25 22:38 2 MG Nitroglycerin 0.4 mg Q5MINP PRN SL 04/01/25 21:00 Ceftriaxone Sodium 50 ml @ 100 mls/hr DAILY@09 IV 04/02/25 09:00 04/03/25 08:41 100 MLS/HR Azithromycin 250 ml @ 125 mls/hr DAILY IV 04/03/25 10:00 04/03/25 10:10 125 MLS/HR Sevelamer HCl 800 mg TIDWM PO 04/02/25 08:00 04/03/25 11:01 800 MG Heparin Sodium (Porcine) 5,000 units Q12HR SC 04/02/25 10:00 04/03/25 10:23 5,000 UNITS Furosemide 40 mg BIDD IV 04/02/25 18:00 04/03/25 05:30 40 MG Hydralazine HCl 10 mg Q4HP PRN IV 04/02/25 18:00 04/03/25 05:30 10 MG Metoprolol Tartrate 25 mg BID PO 04/03/25 10:00 04/03/25 10:10 25 MG Clonidine HCl 0.2 mg Q6HP PRN PO 04/03/25 01:00 Amlodipine Besylate 10 mg DAILY PO 04/03/25 10:30 04/03/25 11:02 10 MG Hydralazine HCl 50 mg TID PO 04/03/25 10:30 04/03/25 13:32 50 MG Calcium Acetate 1,334 mg TIDWMEALS PO 04/03/25 12:00 04/03/25 11:03 1,334 MG Mupirocin 1 applic BID EACHNOSTRI 04/03/25 12:00 04/08/25 11:59 04/03/25 11:04 1 APPLIC Laboratory Results Laboratory Tests 04/02/25 07:17 Urinalysis Test 04/03/25 11:00 Urine Color Light-yellow (Yellow) Urine Clarity Clear (Clear) Urine pH 8.5 (5.0-9.0) Urine Specific [place] 1.010 (1.001-1.035) Urine Protein 2+ (Negative) H Urine Ketones Negative (Negative) Urine Blood Negative /uL (Negative) Urine Nitrite Negative (Negative) Urine Bilirubin Negative (Negative) Urine Urobilinogen Normal mg/dL (Negative) Urine Leukocyte Esterase Negative /uL (Negative) Urine RBC 3 /hpf (0 - 3) Urine Microscopic WBC 3 /HPF (0-3) Urine Squamous Epithelial Cells Few /hpf (<5) Urine Bacteria None seen /hpf (None Seen) Urine Glucose Trace mg/dL (Normal) Microbiology Microbiology Date/Time Source Procedure Growth Status 04/02/25 02:00 Nose MRSA Screen - Final Methicillin Resistant S.aureus Complete 04/01/25 22:05 Blood Blood Culture - Preliminary NO GROWTH AFTER 24 HOURS OF INCUBATION. Resulted Assessment/Plan Assessment/Plan 60-year-old male with a known history of end-stage renal disease on hemodialysis, congestive heart failure, patient with history of cardiac arrest had CPR in the past presented to the hospital with chest pain found to have 1. Acute on chronic hypoxic respiratory failure secondary to acute CHF exacerbation 2. Acute CHF exacerbation with underlying chronic congestive heart failure 3. Probably Gram-negative pneumonia 4. Hypertensive urgency 5 end-stage renal disease on hemodialysis 6. Peptic ulcer disease 7. Thrombocytopenia 8. Previous history of illicit drug use -continue IV antibiotics, hemodialysis per renal, hydralazine p.r.n. for systolic blood pressure more than 160. Plan discussed with: Patient My Orders Orders - ISELA JAIMES MD Procedure Category Date Status Time Hydralazine Injection PHA 04/02/25 In Process (Apresoline Inject 18:00 Date of Service: Apr 03, 2025 Billing Provider: ISELA JAIMES MD Common Visit Codes: [id number] INP/OBS CARE(MOD) ISELA JAIMES MD Apr 03, 2025 17:03
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
[2025-04-03] MEDS: CARVEDILOL 3.125 MG TAB PO SCH (21:16)
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
[2025-04-04] VITALS (8 sets, daily range): BP systolic 144–208; BP diastolic 92–129; PULSE 70–83; RESP 19–20; TEMP 97.7–99.4; O2SAT 92–97
[2025-04-04] MEDS: SODIUM CHL 0.9% 1000 ML BAG XX ONE (07:00)
[2025-04-04 07:10] LABS: Hematocrit 29.7 % (41.0-53.0); Hemoglobin 9.9 g/dL (13.5-17.5)
--- NOTE | 2025-04-04 10:37 | DVHPN2 ---
Progress Note Date Seen: Apr 04, 2025 Medical Necessity Reason Pt with a Central, PICC or Fol: No Subjective Patient reports: No new complaints Other Systems: Patient seen and examined by myself today in follow-up Patient examined hemodialysis, blood pressure stable Objective vital signs Vital Sign Date Time Temp Pulse Resp B/P (MAP) Pulse Ox O2 Delivery O2 Flow Rate FiO2 04/04/25 09:00 97.7 74 20 177/103 (127) 97 97.7 04/03/25 20:00 Nasal Cannula* 2 28 Total Intake and Output 04/03/25 04/03/25 04/04/25 15:00 23:00 07:00 Intake Total 175 ml 500 ml 360 ml Output Total 600 ml Balance 175 ml -100 ml 360 ml medications Current Medications Medications Dose Ordered Sig/Nikos Route Start Time Stop Time Status Last Admin Dose Admin Acetaminophen 325 mg Q4HP PRN PO 04/01/25 21:00 04/04/25 02:20 325 MG Ondansetron HCl 4 mg Q4HP PRN IV 04/01/25 21:00 Morphine Sulfate 2 mg Q4HPRN PRN IV 04/01/25 21:00 Morphine Sulfate 2 mg Q30M PRN IV 04/01/25 21:15 04/01/25 22:38 2 MG Nitroglycerin 0.4 mg Q5MINP PRN SL 04/01/25 21:00 Ceftriaxone Sodium 50 ml @ 100 mls/hr DAILY@09 IV 04/02/25 09:00 04/04/25 08:57 100 MLS/HR Azithromycin 250 ml @ 125 mls/hr DAILY IV 04/03/25 10:00 04/03/25 10:10 125 MLS/HR Sevelamer HCl 800 mg TIDWM PO 04/02/25 08:00 04/04/25 08:57 800 MG Heparin Sodium (Porcine) 5,000 units Q12HR SC 04/02/25 10:00 04/03/25 21:20 5,000 UNITS Furosemide 40 mg BIDD IV 04/02/25 18:00 04/04/25 05:41 40 MG Hydralazine HCl 10 mg Q4HP PRN IV 04/02/25 18:00 04/03/25 05:30 10 MG Clonidine HCl 0.2 mg Q6HP PRN PO 04/03/25 01:00 04/04/25 00:51 0.2 MG Amlodipine Besylate 10 mg DAILY PO 04/03/25 10:30 04/03/25 11:02 10 MG Hydralazine HCl 50 mg TID PO 04/03/25 10:30 04/04/25 05:42 50 MG Calcium Acetate 1,334 mg TIDWMEALS PO 04/03/25 12:00 04/04/25 08:56 1,334 MG Mupirocin 1 applic BID EACHNOSTRI 04/03/25 12:00 04/08/25 11:59 04/03/25 21:17 1 APPLIC Carvedilol 6.25 mg Q12HR PO 04/03/25 22:00 04/03/25 21:16 6.25 MG Examination: LUNGS:Normal, CVS:Normal, MSK:Abnormal laboratory and microbiology Laboratory Tests 04/04/25 05:41 04/02/25 07:17 Test 04/02/25 07:17 Range/Units Serum Glucose 89 74-106 mg/dL Microbiology Date/Time Source Procedure Growth Status 04/02/25 02:00 Nose MRSA Screen - Final Methicillin Resistant S.aureus Complete 04/01/25 22:05 Blood Blood Culture - Preliminary NO GROWTH AFTER 48 HOURS OF INCUBATION. Resulted Problem List/Assessment/Plan Problem List/Assessment/Plan End-stage renal disease on hemodialysis Acute on chronic respiratory failure Congestive heart failure exacerbation Chest pain, troponin negative Hypertensive urgency Hyperkalemia Anemia of chronic kidney disease Hyperphosphatemia Recommendations Continue with UF 4 L ultrafiltration Epogen 26440 subQ 3 times weekly Strict I&Os Renal diet Resume home medication Streamline blood pressure medications Increase amlodipine to 10 mg p.o. q.day Add hydralazine 50 mg p.o. t.i.d. Calcium acetate 1334 mg p.o. t.i.d. with meals Cardiology consult We will continue to follow Plan discussed with: Patient My Orders My Orders Orders - AIDA ANGUIANO MD Procedure Category Date Status Time * Cardiology Consult CONS 04/03/25 Transmitted 13:52 Hemodialysis Orders ORDERS 04/04/25 Transmitted 10:35 AIDA ANGUIANO MD Apr 04, 2025 10:37
[2025-04-04 12:10] LABS: Chloride 99 mmol/L (98-107); Sodium 139 mmol/L (136-145)
[2025-04-04 12:11] LABS: Anion Gap 14 (5-15); Carbon Dioxide 26 mmol/L (20-31)
[2025-04-04 12:16] LABS: BUN/Creatinine Ratio 6.9 (10.0-20.0); Glucose 77 mg/dL (74-106)
[2025-04-04 12:17] LABS: Blood Urea Nitrogen 47 mg/dL (9-23); Calcium 8.2 mg/dL (8.7-10.4); Potassium 5.2 mmol/L (3.5-5.1)
[2025-04-04] MEDS ORDERED: AZIT500T66 PO (16:27)
[2025-04-04] MEDS ORDERED: CEFD300C2 PO (16:27)
--- NOTE | 2025-04-04 16:30 | DVHDS2 ---
Discharge Summary Date of Admission Apr 01, 2025 at 20:53 Date of Discharge: Apr 04, 2025 Labs/Diagnostic Data: Laboratory Results Test 04/04/25 05:41 04/04/25 05:01 04/03/25 11:00 04/02/25 07:17 Hemoglobin 9.9 g/dL (13.5-17.5) Hematocrit 29.7 % (41.0-53.0) Sodium Level 139 mmol/L (136-145) Potassium Level 5.2 mmol/L (3.5-5.1) Chloride Level 99 mmol/L (98-107) Carbon Dioxide Level 26 mmol/L (20-31) Anion Gap 14 (5-15) Blood Urea Nitrogen 47 mg/dL (9-23) Creatinine 6.81 mg/dL (0.700-1.30) Glomerular Filtration Rate Calc 9 mL/min (>90) BUN/Creatinine Ratio 6.9 (10.0-20.0) Serum Glucose 77 mg/dL (74-106) Calcium Level 8.2 mg/dL (8.7-10.4) Urine Color Light-yellow (Yellow) Urine Clarity Clear (Clear) Urine pH 8.5 (5.0-9.0) Urine Specific [place] 1.010 (1.001-1.035) Urine Protein 2+ (Negative) Urine Ketones Negative (Negative) Urine Blood Negative /uL (Negative) Urine Nitrite Negative (Negative) Urine Bilirubin Negative (Negative) Urine Urobilinogen Normal mg/dL (Negative) Urine Leukocyte Esterase Negative /uL (Negative) Urine RBC 3 /hpf (0 - 3) Urine Microscopic WBC 3 /HPF (0-3) Urine Squamous Epithelial Cells Few /hpf (<5) Urine Bacteria None seen /hpf (None Seen) Urine Glucose Trace mg/dL (Normal) Urine Opiates Screen Neg (NEGATIVE) Urine Fentanyl Screen Neg (NEGATIVE) Urine Barbiturates Screen Neg (NEGATIVE) Urine Phencyclidine Screen Neg (NEGATIVE) Urine Amphetamines Screen Neg (NEGATIVE) Urine Benzodiazepines Screen Pos (NEGATIVE) Urine Cocaine Screen Neg (NEGATIVE) Urine Cannabinoids Screen Neg (NEGATIVE) White Blood Count 9.5 10^3/uL (4.4-10.8) Red Blood Count 3.00 10^6/uL (4.5-5.90) Mean Corpuscular Volume 87.6 fL (80.0-100.0) Mean Corpuscular Hemoglobin 29.0 pg (28.0-32.0) Mean Corpuscular Hemoglobin Concent 33.1 g/dL (32.0-36.0) Red Cell Distribution Width 16.7 % (11.8-14.3) Platelet Count 585 10^3/uL (140-450) Mean Platelet Volume 6.6 fL (6.9-10.8) Neutrophils (%) (Auto) 79.1 % (37.0-80.0) Lymphocytes (%) (Auto) 6.5 % (10.0-50.0) Monocytes (%) (Auto) 11.7 % (0.0-12.0) Eosinophils (%) (Auto) 1.2 % (0.0-7.0) Basophils (%) (Auto) 1.5 % (0.0-2.0) Neutrophils # (Auto) 7.5 10 ^3/uL (1.6-8.6) Lymphocytes # (Auto) 0.6 10 ^3/uL (0.4-5.4) Monocytes # (Auto) 1.1 10 ^3/uL (0-1.3) Eosinophils # (Auto) 0.1 10 ^3/uL (0-0.8) Basophils # (Auto) 0.1 10 ^3/uL (0-0.2) Nucleated Red Blood Cells 0.1 % Total Bilirubin 0.4 mg/dL (0.2-1.0) Aspartate Amino Transferase (AST) 17 U/L (13-40) Alanine Aminotransferase (ALT) 12 U/L (7-40) Alkaline Phosphatase 85 U/L (46-116) Total Protein 7.1 g/dL (5.7-8.2) Albumin 4.0 g/dL (3.2-4.8) Parathyroid Hormone (Intact) 174.6 pg/mL (18.4-80.1) Hepatitis B Surface Antigen Negative (Negative) Test 04/02/25 02:00 04/01/25 21:30 04/01/25 21:15 04/01/25 17:41 Influenza Type A Antigen Negative (Negative) Influenza Type B Antigen Negative (Negative) SARS-CoV-2 Antigen (Rapid) Negative (NEGATIVE) Prothrombin Time 11.9 sec (9.3-11.8) Prothrombin Time INR 1.14 (0.9-1.15) Activated Partial Thromboplast Time 30.1 SEC (24.5-34.5) Hemoglobin A1c 5.0 % A1C (<5.7) Lactic Acid Level 1.2 mmol/L (0.4-2.0) Phosphorus Level 6.0 mg/dL (2.4-5.1) Magnesium Level 2.4 mg/dL (1.6-2.6) Direct Bilirubin 0.2 mg/dL (<0.3) Ammonia < 10 umol/L (11-32) Troponin I High Sensitivity 16 ng/L (</=54) Triglycerides Level 56 mg/dL (< 150) Cholesterol Level 139 mg/dL (< 200) LDL Cholesterol 62 mg/dL (< 100) HDL Cholesterol 66 mg/dL (40-59) Lipase 37 U/L (12-53) Vitamin B12 Level 594 pg/mL (211-911) Vitamin D 25-Hydroxy 83.2 ng/mL (30.0-100) Blood Gas Specimen Type Arterial Blood Gas Sample Site Right radial Blood Gas Patient Temperature 37.0 Arterial Blood Date Drawn [id number] Arterial Blood pH 7.453 (7.350-7.450) Arterial Blood Partial Pressure CO2 32.5 mmHg (35.0-48.0) Arterial Blood Partial Pressure O2 146.1 mmHg (83.0-108.0) Arterial Blood HCO3 22.2 mmol/L (21.0-28.0) Arterial Blood Oxygen Saturation 98.9 % (94.0-98.0) Arterial Blood Base Excess -1.2 mmol/L (-2.0-3.0) Arterial Blood Oxyhemoglobin 98.2 % (94.0-98.0) Arterial Blood Carboxyhemoglobin 0.0 % (0.5-1.5) Arterial Blood Methemoglobin 0.7 % (0.0-1.5) Ko Test Yes Blood Gas Total Hemoglobin 9.70 g/dL (13.5-17.5) Blood Gas Set Respiration Rate 18.0 Blood Gas Modality Mask - bipap FiO2 % 80.0 Blood Gas EPAP 5 Blood Gas IPAP 10 B-Type Natriuretic Peptide 1220.90 pg/mL (0-100) Other Laboratory Tests 04/04/25 05:41 04/04/25 05:01 04/02/25 07:17 Brief Hx & Hospital Course: 60-year-old male with a known history of end-stage renal disease on hemodialysis, congestive heart failure, patient with history of cardiac arrest had CPR in the past presented to the hospital with chest pain found to have acute on chronic hypoxic respiratory failure secondary to acute CHF exacerbation and fluid overload. Patient was also found to have suspected Gram-negative pneumonia. Patient was given diuretics, hemodialysis, IV antibiotics. Patient's hypertension is controlled. Patient is currently requesting to go home I think he is stable to be discharged. Patient will be discharged on p.o. antibiotics including cefdinir and azithromycin. Condition at Discharge: Stable Final Diagnosis/Problems List 60-year-old male with a known history of end-stage renal disease on hemodialysis, congestive heart failure, patient with history of cardiac arrest had CPR in the past presented to the hospital with chest pain found to have 1. Acute on chronic hypoxic respiratory failure secondary to acute CHF exacerbation 2. Acute CHF exacerbation with underlying chronic congestive heart failure 3. Probably Gram-negative pneumonia 4. Hypertensive urgency 5 end-stage renal disease on hemodialysis 6. Peptic ulcer disease 7. Thrombocytopenia 8. Previous history of illicit drug use -continue IV antibiotics, hemodialysis per Discharge Disposition: Home SNF Discharge Will this Physician continue t: No Discharge Instruct/Medications Diet: Cardiac 2g Na,low cholest Diet comment: Renal diet Activity: No Restrictions, As Tolerated Follow Up/Referral: Follow up with the PCP and Nephrology in 1-2 weeks Medications: Cefdinir and azithromycin as prescribed. New Medications: Azithromycin (Azithromycin) 500 Mg Tab 1 TAB PO DAILY, #3 TAB Cefdinir (Cefdinir) 300 Mg Cap 1 CAP PO BID for 5 Days, #10 CAP Continued Medications: Clonidine Hydrochloride (Clonidine Hcl) 0.2 Mg Tab Scheduled Azithromycin (Azithromycin), 1 TAB PO DAILY Cefdinir (Cefdinir), 1 CAP PO BID Miscellaneous Medications Clonidine Hydrochloride (Clonidine Hcl), (Reported) Discharge Statement: "Patient was advised to return to the ER or call 911 if any headaches, dizziness, shortness of breath, chest pain, abdominal pain, bleeding, fevers, or worsening of medical condition. Patient was counseled about treatment plan, medications, possible side effects, patientverbalized understanding. All questions were answered to the best of my ability. This discharge took greater then 30 minutes in planning, reviewing documentation, counseling the patient, and discussing with other team members." ASSESSMENT ASSESSMENT Assessment 60-year-old male with a known history of end-stage renal disease on hemodialysis, congestive heart failure, patient with history of cardiac arrest had CPR in the past presented to the hospital with chest pain found to have 1. Acute on chronic hypoxic respiratory failure secondary to acute CHF exacerbation 2. Acute CHF exacerbation with underlying chronic congestive heart failure 3. Probably Gram-negative pneumonia 4. Hypertensive urgency 5 end-stage renal disease on hemodialysis 6. Peptic ulcer disease 7. Thrombocytopenia 8. Previous history of illicit drug use -continue IV antibiotics, hemodialysis per Date of Service: Apr 04, 2025 Billing Provider: ISELA JAIMES MD Common Visit Codes: 44191-XIT/OBS DISCH DAY >30min ISELA JAIMES MD Apr 04, 2025 16:30
[2025-04-04] MEDS ORDERED: EPOETIN ALFA-EPBX 10,000 UNIT/1ML VIAL SC ONE (21:00)
--- NOTE | 2025-04-05 01:24 | DVHPN2 ---
Progress Note - Dictate Date Seen: Apr 04, 2025 Medical Necessity Reason Pt with a Central, PICC or Fol: No Subjective Patient was seen and evaluated in follow up. Patient complains of chest pain. HGB 9.9, HCT 29.7, K 5.2, BUN 47, P[employer] WORKER 6.81, CA 8.2. Telemetry reviewed. vital signs Vital Sign Date Time Temp Pulse Resp B/P (MAP) Pulse Ox O2 Delivery O2 Flow Rate FiO2 04/04/25 18:22 98.4 76 20 92 04/04/25 18:12 195/129 04/04/25 08:00 Nasal Cannula* 2 28 Total Intake and Output 04/03/25 04/03/25 04/04/25 15:00 23:00 07:00 Intake Total 175 ml 500 ml 360 ml Output Total 600 ml Balance 175 ml -100 ml 360 ml medications Current Medications Medications Dose Ordered Sig/Nikos Route Start Time Stop Time Status Last Admin Dose Admin Acetaminophen 325 mg Q4HP PRN PO 04/01/25 21:00 04/04/25 02:20 325 MG Ondansetron HCl 4 mg Q4HP PRN IV 04/01/25 21:00 Morphine Sulfate 2 mg Q4HPRN PRN IV 04/01/25 21:00 Morphine Sulfate 2 mg Q30M PRN IV 04/01/25 21:15 04/01/25 22:38 2 MG Nitroglycerin 0.4 mg Q5MINP PRN SL 04/01/25 21:00 Ceftriaxone Sodium 50 ml @ 100 mls/hr DAILY@09 IV 04/02/25 09:00 04/04/25 08:57 100 MLS/HR Azithromycin 250 ml @ 125 mls/hr DAILY IV 04/03/25 10:00 04/04/25 10:00 125 MLS/HR Sevelamer HCl 800 mg TIDWM PO 04/02/25 08:00 04/04/25 18:12 800 MG Heparin Sodium (Porcine) 5,000 units Q12HR SC 04/02/25 10:00 04/04/25 10:00 5,000 UNITS Furosemide 40 mg BIDD IV 04/02/25 18:00 04/04/25 18:12 40 MG Hydralazine HCl 10 mg Q4HP PRN IV 04/02/25 18:00 04/03/25 05:30 10 MG Clonidine HCl 0.2 mg Q6HP PRN PO 04/03/25 01:00 04/04/25 16:55 0.2 MG Amlodipine Besylate 10 mg DAILY PO 04/03/25 10:30 04/03/25 11:02 10 MG Hydralazine HCl 50 mg TID PO 04/03/25 10:30 04/04/25 05:42 50 MG Calcium Acetate 1,334 mg TIDWMEALS PO 04/03/25 12:00 04/04/25 18:12 1,334 MG Mupirocin 1 applic BID EACHNOSTRI 04/03/25 12:00 04/08/25 11:59 04/04/25 10:00 1 APPLIC Carvedilol 6.25 mg Q12HR PO 04/03/25 22:00 04/04/25 10:00 6.25 MG objective GENERAL: Alert and oriented x 3. No acute distress. EYES: PERRL, EOMI. Anicteric. HENT: Moist mucous membranes. LUNGS: Clear to auscultation bilaterally. CARDIOVASCULAR: Regular rate and rhythm. ABDOMEN: Soft, nontender and nondistended. EXTREMITIES: No edema. NEUROLOGIC: No focal neurological deficits. SKIN: Warm, dry. laboratory and microbiology Laboratory Tests 04/04/25 05:41 04/04/25 05:01 04/02/25 07:17 Test 04/04/25 05:01 Range/Units Serum Glucose 77 74-106 mg/dL Problem List Chest pain, rule out coronary ischemia . Hypertensive urgency. Dyslipidemia. History of cardiopulmonary arrest . Rule out structural heart disease . End-stage renal disease on hemodialysis. Hyperkalemia. Acute on chronic anemia. Recent GI bleed requiring multiple PRBC transfusions. History of methamphetamine use. Assessment/Plan Continued all current supportive medical care. Echocardiogram. Coreg. Clonidine. Diuretics with Lasix. IV antibiotics as ordered. Morphine for pain management. Additional plan as per the hospital course. Plan discussed with: Patient KIMBERLY DYER MD Apr 04, 2025 20:54
--- NOTE | 2025-04-07 17:58 | DVHSR ---
APPROVED REPORT EXAM: Two-dimensional and M-mode echocardiogram with Doppler and color Doppler. Blood Pressure: 157/92 mmHg INDICATION SOB RISK FACTORS Height: 65, Weight: 135 DIMENSIONS LVDd4.8 (3.8-5.7cm)LA (2D)4.5 (1.9-4.0cm)Aortic Root3.8 (2.0-3.7cm) LVDs2.9 (2.5-4.0cm)LA (MM) (1.9-4.0cm)Aortic Cusp Exc2.0 (1.5-2.0cm) EF (%) 70.0 (55-70%)Rt. Atrium5.8 (1.9-4.0cm)Asc. Aorta cm IVSd1.4 (0.7-1.1cm)RV (D) (1.8-2.4cm) PWd1.5 (0.7-1.1cm) Mitral Valve MitralMitral Stenosis E wave1.01m/sMV Mean GR.mmHg A wave1.21m/sMV Peak GR.138mmHg E/A ratio0.82D MVAcm2 DECEL [id number] 1/2 Woft82nf IVRTmsDop MVA3.61cm2 Aortic Valve Aortic ValveAortic Stenosis V11.37m/Jonathan Mean GR.6mmHg V21.86m/Jonathan Peak GR.14mmHg LVOT Diameter2.1 (1.8-2.4cm)Doppler AVA2.55cm2 AI P 1/2 Dyaf781.39ms Pulmonic Valve V21.09m/s Tricuspid Valve TR Velocity3.52m/s [id number] Other Information Technically limited study due to patient moving during entire study. Conclusion Sinus rhythm. Concentric LVH with left atrial enlargement. RV outflow tract enlargement. RV hypertrophy. Valves are normal. EF of 60% with normal RV function. Moderate tricuspid regurgitation. Right ventricular systolic [id number] mmHg. No pericardial effusion masses or vegetations.
--- NOTE | 2025-04-08 13:45 | ECG ---
[facility] Test Date: 2025-04-01 Test Time: 17:01:50 Pat Name: ROBSON ESQUIVEL Department: ED Room: 0217T A Gender: M Bank Officer: : 1965 Requested By: MARIE POWELL Order Number: [id number] Reading MD: Valdo Heard Measurements Intervals [place] Rate: 72 P: 269 AR: 102 QRS: -1 QRSD: 92 T: 4 QT: 452 QTc: 495 Interpretive Statements Sinus or ectopic atrial rhythm Short AR interval Anterior infarct, old Borderline T abnormalities, inferior leads Electronically Signed On 04-11-2025 18:30:49 PDT by Valdo Heard Please click the below link to view image of tracing.
== END 2025-04-04 18:40 | disposition home or self-care (01) | DRG 177 ==
LOC: EDBD 17:00 → ER 17:00 → OVERFLOW 20:53 → CENTRAL 04-02 16:02 → TELE-CENTR 04-03 02:12
PROVIDERS: ADMIT Internal Medicine; ATTEND Internal Medicine
PROC: 5A09357 Assistance with Respiratory Ventilation, Less than 24 Consecutive Hours, Continuous Positive Airway Pressure (ICD-10-PCS; principal; 2025-04-01)
PROC: 5A1D70Z Performance of Urinary Filtration, Intermittent, Less than 6 Hours Per Day (ICD-10-PCS; 2025-04-02)
DX: J15.69 Pneumonia due to other Gram-negative bacteria (principal); J96.21 Acute and chronic respiratory failure with hypoxia; N18.6 End stage renal disease; I13.2 Hypertensive heart and chronic kidney disease with heart failure and with stage 5 chronic kidney disease, or end stage renal disease; J44.0 Chronic obstructive pulmonary disease with (acute) lower respiratory infection; Z20.822 Contact with and (suspected) exposure to COVID-19; E87.5 Hyperkalemia; I16.0 Hypertensive urgency; D63.1 Anemia in chronic kidney disease; E78.5 Hyperlipidemia, unspecified; D69.6 Thrombocytopenia, unspecified; E83.39 Other disorders of phosphorus metabolism; I50.9 Heart failure, unspecified; Z99.2 Dependence on renal dialysis; Z90.81 Acquired absence of spleen; Z87.11 Personal history of peptic ulcer disease; Z82.5 Family history of asthma and other chronic lower respiratory diseases; Z88.0 Allergy status to penicillin; Z79.899 Other long term (current) drug therapy
CPT/HCPCS: 36415; 36600; 71045; 80048; 80053; 80061; 80076; 80307; 81001; 82140; 82306; 82607; 82805; 83036; 83605; 83690; 83735; 83880; 83970; 84100; 84484; 85014; 85018; 85025; 85610; 85730; 87040; 87081; 87086; 87205; 87340; 87426; 87804; 90935; 93005; 93306; 94640; 94660; 96365; 96375; G0378; J1642